=== PATIENT | female | born 1970 | race Caucasian/White ===

== ENCOUNTER 2022-09-06 07:03 | Day surgery (SDC) | payer MEDICAID ==
[~2022-09-06] VITALS: Ht 154.9 cm; Wt 74.8 kg
[2022-09-06] MEDS ORDERED: diphenhydrAMINE 50 MG/ML VIAL ONE (07:36)
[2022-09-06] MEDS ORDERED: fentaNYL citrate 0.05 MG/ML VIAL ONE ×2 (07:36→07:37)
[2022-09-06] MEDS ORDERED: MIDAZOLAM 5 MG/5 ML VIAL ONE (07:37)
[2022-09-06] MEDS: MIDAZOLAM 5 MG/5 ML VIAL IV ONE (07:55)
[2022-09-06] MEDS: fentaNYL citrate 0.05 MG/ML VIAL IVP ONE (07:56)
== END 2022-09-06 09:15 | disposition home or self-care (01) ==
LOC: MMU 07:03 → MDS 07:03
PROVIDERS: ATTEND Internal Medicine Gastroenterology
DX: Z12.11 Encounter for screening for malignant neoplasm of colon (principal); K57.30 Diverticulosis of large intestine without perforation or abscess without bleeding; Z80.0 Family history of malignant neoplasm of digestive organs; K21.9 Gastro-esophageal reflux disease without esophagitis; Z79.899 Other long term (current) drug therapy
CPT/HCPCS: J1200; J2250; J3010